=== PATIENT | female | born 1970 | race Caucasian/White ===

== ENCOUNTER 2018-02-16 18:55 | Emergency (ER) | payer BC, OTHER ==
[~2018-02-16] VITALS: Ht 157.5 cm; Wt 45.0 kg
[2018-02-16 18:58] VITALS: BP 113/53
[2018-02-16] MEDS ORDERED: OXYcodone/APAP 5/325MG TABLET PO ONE (20:00)
[2018-02-16] MEDS ORDERED: OXYcodone/APAP 5/325MG TABLET ONE (20:04)
== END 2018-02-16 21:20 | disposition home or self-care (01) ==
LOC: ED 21:08
DX: M19.90 Unspecified osteoarthritis, unspecified site (principal); M54.12 Radiculopathy, cervical region; M54.2 Cervicalgia; F17.200 Nicotine dependence, unspecified, uncomplicated
CPT/HCPCS: 72125; 99284

== ENCOUNTER 2018-10-29 08:42 | Emergency (ER) | payer OTHER ==
[~2018-10-29] VITALS: Ht 157.5 cm; Wt 47.8 kg
--- NOTE | 2018-10-29 08:57 | NUR ---
PATIENT PRESENTS TO ED TODAY FOR VAG BLEEDING (80 DAYS OF 120 DAYS), HAS UTERINE FIBROIDS AND SUPPOSED TO HAVE HYSTERECTOMY IN NEXT MONTH (DR BRIONES). WORSENING PAIN AND VAG BLEEDING THIS PAST WEEKEND. AWAITING MD ORDERS, CALL LIGHT WITHIN REACH.
[2018-10-29] MEDS ORDERED: SERT100T PO (09:03)
[2018-10-29] MEDS ORDERED: MELO15TA24 PO (09:04)
[2018-10-29] MEDS ORDERED: BUSP5TAB2 PO (09:04)
[2018-10-29] MEDS ORDERED: TRAM50TA2 PO (09:05)
[2018-10-29] MEDS ORDERED: SODIUM CHLORIDE FLUSH 10ML SYR IVF ONE (09:30)
[2018-10-29] MEDS ORDERED: MORPHINE SULFATE 4 MG/ML, 1ML IVPush PRN (09:30)
[2018-10-29] MEDS ORDERED: ONDANSETRON 2MG/ML, 2ML IVPush ONE (09:30)
[2018-10-29 09:32] LABS: BASOPHILS # (AUTO) 0.03 x10^3/uL (0-0.1); BASOPHILS % (AUTO) 1 % (0-1); EOSINOPHILS # (AUTO) 0.03 x10^3/uL (0-0.4); EOSINOPHILS % (AUTO) 1 % (1-7); LYMPHOCYTES # (AUTO) 0.97 x10^3/uL (1-3.4); LYMPHOCYTES % (AUTO) 20 % (22-44); MD NO; MEAN CORPUSCULAR HEMOGLOBIN 31.6 pg (27.0-34.8); MEAN CORPUSCULAR VOLUME 92.9 fL (80-100); MEAN PLATELET VOLUME 7.9 fL (7.4-10.4); MONOCYTES # (AUTO) 0.34 x10^3/uL (0.2-0.8); MONOCYTES % (AUTO) 7 % (2-9); NEUTROPHILS # (AUTO) 3.39 x10^3/uL (1.8-6.8); NEUTROPHILS % (AUTO) 71 % (42-75); PLATELET COUNT 398 x10^3/uL (130-400); RED BLOOD COUNT 4.05 x10^6/uL (3.82-5.3); RED CELL DISTRIBUTION WIDTH 15.6 % (9.6-15.2)
--- NOTE | 2018-10-29 09:35 | NUR ---
STRAIGHT CATH COMPLETED, PATIENT SUYAPA PROCEDURE WELL. URINE COLLECTED AND WALKED TO LAB.
[2018-10-29] MEDS ORDERED: ONDANSETRON 2MG/ML, 2ML ONE (09:37)
[2018-10-29] MEDS ORDERED: MORPHINE SULFATE 4 MG/ML, 1ML ONE (09:38)
--- NOTE | 2018-10-29 09:39 | NUR ---
PATIENT IN US.
[2018-10-29 09:41] LABS: ALBUMIN 3.9 g/dL (3.4-5.0); ANION GAP 9 mmol/L (5-15); CALCIUM 8.3 mg/dL (8.5-10.1); CHLORIDE 107 mmol/L (98-107); CREATININE 0.72 mg/dL (0.55-1.02)
[2018-10-29 09:45] LABS: MICROSCOPIC NOT IND
[2018-10-29 09:48] LABS: CULTURE INDICATED? NO
--- NOTE | 2018-10-29 10:22 | NUR ---
RESULTS BACK, CHART UP FOR RECHECK.
[2018-10-29 11:12] VITALS: BP 119/74
--- NOTE | 2018-10-29 11:12 | NUR ---
Patient/Caregiver given discharge instructions and they have confirmed that they understand the instructions. Patient ambulatory with steady gait. Family to drive patient home for safe DC.
[2018-11-07] MEDS ORDERED: MULT1TAB60 PO (15:15)
[2018-11-07] MEDS ORDERED: HYDR-3652 PO (15:15)
[2018-11-07] MEDS ORDERED: VITA1CAP PO (15:15)
[2018-11-07] MEDS ORDERED: ERGO2000 PO (15:15)
== END 2018-10-29 11:16 | disposition home or self-care (01) ==
LOC: ED 10:13
DX: N93.9 Abnormal uterine and vaginal bleeding, unspecified (principal); F17.210 Nicotine dependence, cigarettes, uncomplicated
CPT/HCPCS: 36415; 76830; 80048; 81003; 82040; 84703; 85025; 96374; 96375; 99284; J2270; J2405

== ENCOUNTER 2019-05-08 10:44 | Emergency (ER) | payer OTHER ==
[~2019-05-08] VITALS: Ht 157.5 cm; Wt 51.5 kg
[~2019-05-08 10:44] MED LIST: BUSP5TAB2 PO; ERGO2000 PO; HYDR-3652 PO; MELO15TA24 PO; MULT1TAB60 PO; SERT100T PO; TRAM50TA2 PO; VITA1CAP PO
--- NOTE | 2019-05-08 11:15 | NUR ---
PT PRESENTING TO ER FOR SORE THROAT, COUGH, FATIGUE AND MALAISE, ALSO STS EXPOSURE TO COWORKER TESTING POSITIVE FOR COVID-19. CONNECTED TO MONITORING, VSS AT THIS TIME. CALL LIGHT WITHIN REACH
--- NOTE | 2019-05-08 11:35 | NUR ---
AT BEDSIDE FOR ASSESSMENT AND SWAB COLLECTION.
--- NOTE | 2019-05-08 11:38 | NUR ---
PT STS WAS SWABBED ALREADY AT HEALTH DEPARTMENT, STILL AWAITING RESULTS.
[2019-05-08 12:12] LABS: BASOPHILS # (AUTO) 0.04 x10^3/uL (0-0.1); BASOPHILS % (AUTO) 1 % (0-1); EOSINOPHILS # (AUTO) 0.02 x10^3/uL (0-0.4); EOSINOPHILS % (AUTO) 0 % (1-7); LYMPHOCYTES # (AUTO) 1.39 x10^3/uL (1-3.4); LYMPHOCYTES % (AUTO) 33 % (22-44); MD NO; MEAN CORPUSCULAR HEMOGLOBIN 34.3 pg (27.0-34.8); MEAN CORPUSCULAR HGB CONC 34.6 g/dL (32.4-35.8); MEAN CORPUSCULAR VOLUME 99.1 fL (80-100); MEAN PLATELET VOLUME 7.2 fL (7.4-10.4); MONOCYTES # (AUTO) 0.35 x10^3/uL (0.2-0.8); MONOCYTES % (AUTO) 8 % (2-9); NEUTROPHILS # (AUTO) 2.37 x10^3/uL (1.8-6.8); NEUTROPHILS % (AUTO) 57 % (42-75); PLATELET COUNT 351 x10^3/uL (130-400); RED BLOOD COUNT 4.02 x10^6/uL (3.82-5.3); RED CELL DISTRIBUTION WIDTH 15.2 % (9.6-15.2)
[2019-05-08 12:19] LABS: ALANINE AMINOTRANSFERASE 28 U/L (12-78); ALBUMIN 3.8 g/dL (3.4-5.0); ANION GAP 9 mmol/L (5-15); CALCIUM 8.2 mg/dL (8.5-10.1); CHLORIDE 107 mmol/L (98-107); CREATININE 0.73 mg/dL (0.55-1.02)
[2019-05-08 12:21] LABS: ALKALINE PHOSPHATASE 60 U/L (45-117); BILIRUBIN,TOTAL 0.4 mg/dL (0.2-1.0); TOTAL PROTEIN 7.2 g/dL (6.4-8.2)
--- NOTE | 2019-05-08 12:34 | NUR ---
PT STS BODY PAIN, MD UPDATED. AWAITING ORDERS FOR TYLENOL
[2019-05-08 12:35] VITALS: BP 116/68
--- NOTE | 2019-05-08 12:37 | NUR ---
ALL RESULTS BACK AT THIS TIME, CHART UP FOR RECHECK
[2019-05-08] MEDS ORDERED: ACETAMINOPHEN 500 MG TABLET ONE (12:48)
--- NOTE | 2019-05-08 12:50 | NUR ---
PT MEDICATED FOR PAIN PER MAR
[2019-05-08] MEDS ORDERED: ACETAMINOPHEN 500 MG TABLET PO ONE (13:00)
== END 2019-05-08 13:17 | disposition home or self-care (01) ==
LOC: ED 12:05
DX: B34.9 Viral infection, unspecified (principal)
CPT/HCPCS: 36415; 71045; 80053; 85025; 87081; 87880; 99284